=== PATIENT | male | born 1965 | race Caucasian/White ===

== ENCOUNTER → 2021-01-31 | Outpatient (CLI) | payer OTHER | END | disposition home or self-care (01) | LOC: RAD 08:30 | PROVIDERS: ATTEND Chiropractor Sports Physician | DX: M51.36 Other intervertebral disc degeneration, lumbar region (principal); M48.061 Spinal stenosis, lumbar region without neurogenic claudication; M48.07 Spinal stenosis, lumbosacral region; M25.78 Osteophyte, vertebrae ==

== ENCOUNTER 2021-03-06 08:47 | Emergency (ER) | payer OTHER ==
[~2021-03-06] VITALS: Ht 177.8 cm; Wt 74.8 kg
[2021-03-06] MEDS ORDERED: HYDROCODONE-AC1 EAC1 PO (11:12)
[2021-03-06] MEDS ORDERED: METHOCARBAMOL500 M1 PO (11:12)
[2021-03-06] MEDS ORDERED: PREDNISONE20 M1 PO (11:12)
[2021-03-06] MEDS ORDERED: ZOFRAN4 MG PO (11:12)
== END 2021-03-06 11:36 | disposition home or self-care (01) ==
LOC: ED 08:47
DX: M54.42 Lumbago with sciatica, left side (principal); Z88.0 Allergy status to penicillin

== ENCOUNTER → 2021-03-29 | Outpatient (CLI) | payer OTHER ==
[~2021-03-29] MED LIST: HYDROCODONE-AC1 EAC1 PO; METHOCARBAMOL500 M1 PO; PREDNISONE20 M1 PO; ZOFRAN4 MG PO
== END | disposition home or self-care (01) ==
LOC: MRI 14:35
PROVIDERS: ATTEND Chiropractor Sports Physician
DX: M47.817 Spondylosis without myelopathy or radiculopathy, lumbosacral region (principal); M51.27 Other intervertebral disc displacement, lumbosacral region; M99.03 Segmental and somatic dysfunction of lumbar region